=== PATIENT | male | born 2005 | race Caucasian/White ===

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

== ENCOUNTER 2024-08-15 18:08 | Emergency (ER) | payer OTHER, BC ==
[2024-08-15 18:24] VITALS: BP 120/68; PULSE 59
== END 2024-08-15 19:45 | disposition home or self-care (01) ==
LOC: JP.ED 18:08
DX: S01.21XA Laceration without foreign body of nose, initial encounter (principal); W26.8XXA Contact with other sharp object(s), not elsewhere classified, initial encounter; Y93.01 Activity, walking, marching and hiking
CPT/HCPCS: 12013; 99282; 99283

== ENCOUNTER 2024-10-11 09:24 | Emergency (ER) | payer OTHER, BC ==
[2024-10-11 09:34] VITALS: BP 109/52; PULSE 61
[2024-10-11] MEDS ORDERED: Naloxone 0.4 MG/ML SDV IVPUSH PRN (09:37)
[2024-10-11] MEDS ORDERED: fentaNYL 50 MCG/ML SDV IVPUSH ONE (09:37)
[2024-10-11] MEDS: Ketorolac 15 MG/ML SDV IVPUSH ONE (09:48)
== END 2024-10-11 11:12 | disposition home or self-care (01) ==
LOC: JP.ED 09:24
DX: S92.412A Displaced fracture of proximal phalanx of left great toe, initial encounter for closed fracture (principal); J45.909 Unspecified asthma, uncomplicated; Z79.899 Other long term (current) drug therapy; V27.49XA Other motorcycle driver injured in collision with fixed or stationary object in traffic accident, initial encounter; Y93.55 Activity, bike riding
CPT/HCPCS: 73590; 73610; 73630; 96374; 99284; J1885